=== PATIENT | male | born 1960 | race Caucasian/White ===

== ENCOUNTER 2021-01-08 18:38 | Inpatient (IN) | payer MEDICARE ==
[~2021-01-08] VITALS: Ht 170.2 cm; Wt 77.4 kg
[2021-01-08] MEDS ORDERED: LevETIRAcetam 1,000 MG in DEXTROSE 5%-WATER 100 ML IV ONE (18:45)
[2021-01-08] MEDS ORDERED: LEVE500T53 PO (19:00)
[2021-01-08 19:15] LABS: HEMOGLOBIN 15.5 g/dL (13.5-17.5); MEAN CORPUSCULAR HEMOGLOBIN 29.5 pg (26.0-34.0); MEAN CORPUSCULAR HGB CONC 31.1 G/dL (31.0-37.0); MEAN CORPUSCULAR VOLUME 95 fL (80-100); PLATELET COUNT (AUTO) 204 K/uL (150-450); RED BLOOD CELL COUNT(AUTO) 5.26 MIL/uL (4.50-5.90); RED CELL DISTRIBUTION WIDTH 15.2 % (11.5-14.5)
[2021-01-08] MEDS ORDERED: SODIUM CHLORIDE 0.9% 1,000 ML IV ONE ×2 (19:15→20:15)
[2021-01-08 19:19] LABS: APPEARANCE,URINE CLEAR (CLEAR); BILIRUBIN,URINE NEGATIVE (NEGATIVE); GLUCOSE, URINE (UA) NEGATIVE (NEGATIVE); KETONES,URINE 40 mg/dL (NEGATIVE); LEUKOCYTE ESTERASE ,URINE NEGATIVE (NEGATIVE); NITRATE,URINE NEGATIVE (NEGATIVE); OCCULT BLOOD,URINE LARGE (NEGATIVE); PH,URINE 5.5 (5.0-8.0); PROTEIN,URINE SEE CONFIRM (NEGATIVE); UROBILINOGEN,URINE 0.2 mg/dL (<=1.0)
[2021-01-08 19:24] LABS: AMPHET/METH SCREEN,URINE NEGATIVE (NEGATIVE); BARBITURATE SCREEN, URINE NEGATIVE (NEGATIVE); BENZODIAZEPINES SCREEN,URINE NEGATIVE (NEGATIVE); CANNABINOID SCREEN,URINE POSITIVE (NEGATIVE); COCAINE SCREEN,URINE NEGATIVE (NEGATIVE); METHADONE SCREEN, URINE NEGATIVE (NEGATIVE); OPIATE SCREEN,URINE NEGATIVE (NEGATIVE); PHENCYCLIDINE SCREEN,URINE NEGATIVE (NEGATIVE)
[2021-01-08] MEDS ORDERED: MIDAZOLAM HCL 100 MG in SODIUM CHLORIDE 0.9% 180 ML IV PRN (19:30)
[2021-01-08 19:32] LABS: PROTHROMBIN TIME 10.6 SEC (9.4-11.6)
[2021-01-08 19:33] LABS: TROPONIN I < 0.02 ng/mL (0.00-0.05)
[2021-01-08] MEDS: PROPOFOL 1000 MG/ISO-OSM 100 ML IV PRN (19:36)
[2021-01-08 19:37] LABS: B-TYPE NATRIURETIC PEPTIDE 55 pg/mL (0-100)
[2021-01-08 19:39] LABS: BAND NEUTROPHILS % (MANUAL) 5 % (0-5); LYMPHOCYTES % (MANUAL) 35 % (22-44); MONOCYTES % (MANUAL) 3 % (2-9); SEGMENTED NEUTROPHILS % 57 % (40-70)
[2021-01-08 19:40] LABS: AMMONIA 177 umol/L (11-32)
[2021-01-08 19:42] LABS: BACTERIA,URINE Rare /HPF (None Seen); SQUAMOUS EPITHELIAL CELL,UR Few /LPF (None Seen); SULFOSALICYLIC ACID,URINE 3+ (Negative); WBC,URINE 0-2 /HPF (0-5)
[2021-01-08] MEDS ORDERED: ADENOSINE 3 MG/ML 2 ML VIAL IVP ONE (19:45)
[2021-01-08] MEDS ORDERED: ADENOSINE 3 MG/ML 2 ML VIAL ONE (19:45)
[2021-01-08] MEDS ORDERED: SODIUM CHLORIDE 0.9% 40 ML ONE (19:46)
[2021-01-08 19:49] LABS: ALANINE AMINOTRANSFERASE 39 U/L (12-78); ALBUMIN 4.3 g/dL (3.4-5.0); ALKALINE PHOSPHATASE 145 U/L (46-116); ANION GAP 35 mmol/L (8-16); ASPARTATE AMINOTRANSFERASE 35 U/L (15-37); BILIRUBIN,TOTAL 1.2 mg/dL (0.1-1.0); CALCIUM, TOTAL 8.9 mg/dL (8.8-10.5); CHLORIDE 97 mmol/L (98-107); CREATINE KINASE, TOTAL ONLY 193 U/L (39-308); CREATININE 1.44 mg/dL (0.60-1.30); GLOMERULAR FILTR. RATE CALC 50 mL/min (>60); GLUCOSE,RANDOM 209 mg/dL (70-110); LIPASE 110 U/L (73-393); PHOSPHORUS 6.3 mg/dL (2.5-4.9); POTASSIUM 3.9 mmol/L (3.5-5.1); SODIUM SERUM 139 mmol/L (136-145); TOTAL PROTEIN, SERUM 8.8 g/dL (6.4-8.2); UREA NITROGEN, BLOOD 12 mg/dL (7-18)
[2021-01-08 19:50] LABS: CARBON DIOXIDE 7 mmol/L (22-29)
[2021-01-08 19:58] LABS: SALICYLATE < 2.8 mg/dL (2.8-20.0)
[2021-01-08] MEDS ORDERED: DILTIAZEM HCL 5 MG/ML 5 ML VIAL IVP ONE (20:00)
[2021-01-08 20:03] LABS: ACETAMINOPHEN < 2 mcg/mL (10-30)
[2021-01-08 20:09] LABS: COVID AG,FIA SOURCE NASOPHARYNGEAL
[2021-01-08] MEDS ORDERED: LORazepam 2 MG/ML VIAL ONE (20:44)
[2021-01-08] MEDS ORDERED: LORazepam 2 MG/ML VIAL IVP ONE ×2 (20:45→21:30)
[2021-01-08] MEDS ORDERED: 0.9% SODIUM CHLORIDE 10 ML SYRINGE IVP PRN (21:15)
[2021-01-08] MEDS ORDERED: ONDANSETRON HCL 4 MG/2 ML VIAL IVP PRN ×2 (21:15)
[2021-01-08 21:30] LABS: SITE, BLOOD GAS RT RADIAL; SOURCE, BLOOD GAS ARTERIAL; TEMPERATURE, FAHRENHEIT, BG 98.6 FAHREN (96.0-98.6)
[2021-01-08 21:31] LABS: ABG BASE EXCESS -13.1 mmol/L (-2.0-3.0); ABG CARBOXYHEMOGLOBIN 0.2 % (0.0-1.5); ABG OXYHEMOGLOBIN 98.9 % (94.0-100.0); ABG PCO2 41 mmHg (35-45); ABG PH 7.186 (7.35-7.450); PO2, ARTERIAL BG 439.4 mmHg (84.0-92.0)
[2021-01-08 21:32] LABS: LACTIC ACID 24.4 mmol/L (0.4-2.0)
[2021-01-08 21:32] LABS: ABG METHEMOGLOBIN 0.6 % (0.0-1.5); ABG OXYGEN SATURATION 99.7 % (95.0-98.0); O2 DEVICE,BLOOD GAS VENTILATOR (ROOM AIR)
[2021-01-08 21:33] LABS: PEEP,BG 5 cm H2O; VT, ABG 450 ml
[2021-01-08 22:30] VITALS: BP 123/95
[2021-01-08] MEDS: SODIUM CHLORIDE 0.9% 1,500 ML IV ONE ×2 (22:35→22:36)
[2021-01-08] MEDS: SODIUM CHLORIDE 0.9% 1,000 ML IV SCH (22:35)
[2021-01-09] VITALS: BP 149/95
[2021-01-09] MEDS: PROPOFOL 1000 MG/ISO-OSM 100 ML IV PRN ×6 (01:02→23:45)
[2021-01-09 04:00] VITALS: BP 141/87
[2021-01-09 05:10] LABS: BASOPHILS % (AUTO) 0.3 % (0.0-2.0); EOSINOPHILS % (AUTO) 0.1 % (1.0-6.0); HEMATOCRIT 39.1 % (41-53); HEMOGLOBIN 12.8 g/dL (13.5-17.5); LYMPHOCYTES # (AUTO) 0.7 K/uL (1.0-4.8); LYMPHOCYTES % (AUTO) 4.8 % (22.0-44.0); MEAN CORPUSCULAR HEMOGLOBIN 29.2 pg (26.0-34.0); MEAN CORPUSCULAR HGB CONC 32.9 G/dL (31.0-37.0); MEAN CORPUSCULAR VOLUME 89 fL (80-100); MONOCYTES # (AUTO) 0.3 K/uL (0.1-1.0); MONOCYTES % (AUTO) 2.2 % (2.0-9.0); PLATELET COUNT (AUTO) 118 K/uL (150-450)
[2021-01-09 05:35] LABS: ALANINE AMINOTRANSFERASE 31 U/L (12-78); ALBUMIN 3.3 g/dL (3.4-5.0); ALKALINE PHOSPHATASE 94 U/L (46-116); ANION GAP 16 mmol/L (8-16); ASPARTATE AMINOTRANSFERASE 36 U/L (15-37); BILIRUBIN,TOTAL 1.4 mg/dL (0.1-1.0); CALCIUM, TOTAL 7.5 mg/dL (8.8-10.5); CARBON DIOXIDE 22 mmol/L (22-29); CHLORIDE 104 mmol/L (98-107); CREATININE 0.82 mg/dL (0.60-1.30); GLOMERULAR FILTR. RATE CALC > 60 mL/min (>60); GLUCOSE,RANDOM 106 mg/dL (70-110); POTASSIUM 4.8 mmol/L (3.5-5.1); SODIUM SERUM 142 mmol/L (136-145); TOTAL PROTEIN, SERUM 6.7 g/dL (6.4-8.2); UREA NITROGEN, BLOOD 9 mg/dL (7-18)
[2021-01-09 05:52] LABS: NEUTROPHILS % (AUTO) 92.6 % (40.0-70.0)
[2021-01-09] MEDS: LevETIRAcetam 1,000 MG in DEXTROSE 5%-WATER 100 ML IV SCH ×2 (06:50→18:20)
[2021-01-09] MEDS: SODIUM CHLORIDE 0.9% 1,000 ML IV SCH (07:25)
[2021-01-09 08:00] VITALS: BP 124/80
[2021-01-09] MEDS: HEPARIN SODIUM,PORCINE 5,000 UNITS/ML VIAL SQ SCH ×4 (08:54→23:43)
[2021-01-09] MEDS: CHLORHEXIDINE GLUCONATE 0.12% 15 ML UDCUP ORAL RINSE MM SCH ×2 (08:55→20:30)
[2021-01-09 12:00] VITALS: BP 128/80
[2021-01-09 16:00] VITALS: BP 125/77
[2021-01-09] MEDS ORDERED: SODIUM CHLORIDE 0.9% 250 ML IV ONE (18:11)
[2021-01-09] MEDS: MIDAZOLAM HCL 100 MG in SODIUM CHLORIDE 0.9% 180 ML IV PRN (19:23)
[2021-01-09 19:51] LABS: SITE, BLOOD GAS RT RADIAL
[2021-01-09 19:52] LABS: ABG BASE EXCESS -4.8 mmol/L (-2.0-3.0); ABG HCO3 21.2 mmol/L (22.0-26.0); ABG METHEMOGLOBIN 0.3 % (0.0-1.5); ABG OXYGEN CONTENT 19.3 mL/dL (15.0-23.0); ABG OXYGEN SATURATION 98.6 % (95.0-98.0); ABG OXYHEMOGLOBIN 97.3 % (94.0-100.0); ABG PCO2 36 mmHg (35-45); ABG PH 7.377 (7.35-7.450); PO2, ARTERIAL BG 113.7 mmHg (84.0-92.0); SOURCE, BLOOD GAS ARTERIAL; TEMPERATURE, FAHRENHEIT, BG 98.6 FAHREN (96.0-98.6)
[2021-01-09 19:53] LABS: O2 DEVICE,BLOOD GAS VENTILATOR (ROOM AIR); PEEP,BG 5 cm H2O; VT, ABG 450 ml
[2021-01-09 20:00] VITALS: BP 163/96
[2021-01-10] VITALS: BP 113/70
[2021-01-10 04:00] VITALS: BP 118/70
[2021-01-10] MEDS: PROPOFOL 1000 MG/ISO-OSM 100 ML IV PRN ×5 (04:04→20:51)
[2021-01-10 05:43] LABS: BASOPHILS % (AUTO) 0.3 % (0.0-2.0); EOSINOPHILS % (AUTO) 1.1 % (1.0-6.0); HEMATOCRIT 39.7 % (41-53); HEMOGLOBIN 13.2 g/dL (13.5-17.5); LYMPHOCYTES # (AUTO) 0.9 K/uL (1.0-4.8); LYMPHOCYTES % (AUTO) 12.8 % (22.0-44.0); MEAN CORPUSCULAR HEMOGLOBIN 29.7 pg (26.0-34.0); MEAN CORPUSCULAR HGB CONC 33.3 G/dL (31.0-37.0); MEAN CORPUSCULAR VOLUME 89 fL (80-100); MONOCYTES # (AUTO) 0.4 K/uL (0.1-1.0); MONOCYTES % (AUTO) 6.1 % (2.0-9.0); NEUTROPHILS # (AUTO) 5.7 K/uL (1.8-7.7); NEUTROPHILS % (AUTO) 79.7 % (40.0-70.0); PLATELET COUNT (AUTO) 79 K/uL (150-450); RED BLOOD CELL COUNT(AUTO) 4.45 MIL/uL (4.50-5.90); RED CELL DISTRIBUTION WIDTH 16.2 % (11.5-14.5)
[2021-01-10] MEDS: LevETIRAcetam 1,000 MG in DEXTROSE 5%-WATER 100 ML IV SCH ×2 (06:05→19:38)
[2021-01-10 06:28] LABS: ANION GAP 11 mmol/L (8-16); CALCIUM, TOTAL 8.5 mg/dL (8.8-10.5); CARBON DIOXIDE 23 mmol/L (22-29); CHLORIDE 112 mmol/L (98-107); CREATININE 0.76 mg/dL (0.60-1.30); GLOMERULAR FILTR. RATE CALC > 60 mL/min (>60); GLUCOSE,RANDOM 92 mg/dL (70-110); PHOSPHORUS 2.4 mg/dL (2.5-4.9); POTASSIUM 3.7 mmol/L (3.5-5.1); SODIUM SERUM 146 mmol/L (136-145); UREA NITROGEN, BLOOD 7 mg/dL (7-18)
[2021-01-10 08:00] VITALS: BP 141/86
[2021-01-10] MEDS: ETHYL ALCOHOL 62% ANTISEPTIC NASAL INHALANT 0.6 ML AMPUL NASAL SCH ×2 (08:21→20:50)
[2021-01-10] MEDS: HEPARIN SODIUM,PORCINE 5,000 UNITS/ML VIAL SQ SCH ×2 (08:21→16:46)
[2021-01-10] MEDS: CHLORHEXIDINE GLUCONATE 0.12% 15 ML UDCUP ORAL RINSE MM SCH ×2 (08:21→20:50)
[2021-01-10] MEDS: MethylPREDNISolone SOD SUCC 40 MG/ML VIAL IVP SCH ×2 (11:55→17:32)
[2021-01-10 12:00] VITALS: BP 117/72
[2021-01-10 16:00] VITALS: BP 160/90
[2021-01-10] MEDS: FentaNYL CIT 1000MCG/0.9% NACL 100 ML IV PRN (17:00)
[2021-01-10 20:00] VITALS: BP 141/80
[2021-01-10] MEDS: ACETAMINOPHEN 650 MG/20.3 ML SOLUTION UDCUP GT PRN (20:54)
[2021-01-10] MEDS: MIDAZOLAM HCL 100 MG in SODIUM CHLORIDE 0.9% 180 ML IV PRN (21:04)
[2021-01-11] VITALS: BP 146/76
[2021-01-11] MEDS: MethylPREDNISolone SOD SUCC 40 MG/ML VIAL IVP SCH ×4 (00:45→18:43)
[2021-01-11] MEDS: HEPARIN SODIUM,PORCINE 5,000 UNITS/ML VIAL SQ SCH ×3 (00:46→16:07)
[2021-01-11] MEDS: SODIUM CHLORIDE 0.9% 1,000 ML IV SCH ×2 (01:34→14:29)
[2021-01-11 04:00] VITALS: BP 148/86
[2021-01-11] MEDS: LevETIRAcetam 1,000 MG in DEXTROSE 5%-WATER 100 ML IV SCH ×2 (06:08→20:02)
[2021-01-11 08:00] VITALS: BP 172/83
[2021-01-11] MEDS: CHLORHEXIDINE GLUCONATE 0.12% 15 ML UDCUP ORAL RINSE MM SCH ×2 (08:53→21:34)
[2021-01-11] MEDS: ETHYL ALCOHOL 62% ANTISEPTIC NASAL INHALANT 0.6 ML AMPUL NASAL SCH ×2 (08:54→21:34)
[2021-01-11 12:00] VITALS: BP 155/76
[2021-01-11] MEDS: PROPOFOL 1000 MG/ISO-OSM 100 ML IV PRN ×2 (12:10→21:35)
[2021-01-11 16:00] VITALS: BP 133/73
[2021-01-11] MEDS: FentaNYL CIT 1000MCG/0.9% NACL 100 ML IV PRN (16:08)
[2021-01-11 20:00] VITALS: BP 129/72
[2021-01-11] MEDS ORDERED: SODIUM CHLORIDE 0.9% 250 ML IV ONE (23:52)
[2021-01-12] VITALS: BP 147/97
[2021-01-12] MEDS: MethylPREDNISolone SOD SUCC 40 MG/ML VIAL IVP SCH ×5 (00:30→23:48)
[2021-01-12] MEDS: HEPARIN SODIUM,PORCINE 5,000 UNITS/ML VIAL SQ SCH ×4 (00:30→23:48)
[2021-01-12 04:00] VITALS: BP 152/90
[2021-01-12 05:10] LABS: EOSINOPHILS % (AUTO) 0 % (1.0-6.0); HEMOGLOBIN 13.2 g/dL (13.5-17.5); LYMPHOCYTES # (AUTO) 0.6 K/uL (1.0-4.8); LYMPHOCYTES % (AUTO) 7.7 % (22.0-44.0); MEAN CORPUSCULAR HEMOGLOBIN 29.6 pg (26.0-34.0); MEAN CORPUSCULAR HGB CONC 33.8 G/dL (31.0-37.0); MEAN CORPUSCULAR VOLUME 88 fL (80-100); MONOCYTES # (AUTO) 0.2 K/uL (0.1-1.0); MONOCYTES % (AUTO) 2.7 % (2.0-9.0); NEUTROPHILS # (AUTO) 7.2 K/uL (1.8-7.7); PLATELET COUNT (AUTO) 113 K/uL (150-450); RED BLOOD CELL COUNT(AUTO) 4.44 MIL/uL (4.50-5.90); RED CELL DISTRIBUTION WIDTH 16.1 % (11.5-14.5)
[2021-01-12 05:11] LABS: ANION GAP 8 mmol/L (8-16); CALCIUM, TOTAL 8.5 mg/dL (8.8-10.5); CARBON DIOXIDE 26 mmol/L (22-29); CHLORIDE 109 mmol/L (98-107); CREATININE 0.72 mg/dL (0.60-1.30); GLOMERULAR FILTR. RATE CALC > 60 mL/min (>60); GLUCOSE,RANDOM 165 mg/dL (70-110); SODIUM SERUM 143 mmol/L (136-145); UREA NITROGEN, BLOOD 19 mg/dL (7-18)
[2021-01-12] MEDS: SODIUM CHLORIDE 0.9% 1,000 ML IV SCH ×2 (05:14→19:48)
[2021-01-12 05:15] LABS: NEUTROPHILS % (AUTO) 89.6 % (40.0-70.0)
[2021-01-12] MEDS: LevETIRAcetam 1,000 MG in DEXTROSE 5%-WATER 100 ML IV SCH ×2 (06:31→19:30)
[2021-01-12 08:00] VITALS: BP 135/75
[2021-01-12] MEDS: CHLORHEXIDINE GLUCONATE 0.12% 15 ML UDCUP ORAL RINSE MM SCH ×2 (09:00→20:03)
[2021-01-12] MEDS: ETHYL ALCOHOL 62% ANTISEPTIC NASAL INHALANT 0.6 ML AMPUL NASAL SCH ×2 (09:00→20:03)
[2021-01-12 12:00] VITALS: BP 159/94
[2021-01-12] MEDS: PANTOPRAZOLE SODIUM 40 MG/VIAL IVP SCH (12:37)
[2021-01-12] MEDS: MIDAZOLAM HCL 100 MG in SODIUM CHLORIDE 0.9% 180 ML IV PRN (12:38)
[2021-01-12] MEDS: FentaNYL CIT 1000MCG/0.9% NACL 100 ML IV PRN (15:24)
[2021-01-12 16:00] VITALS: BP 129/68
[2021-01-12] MEDS: PROPOFOL 1000 MG/ISO-OSM 100 ML IV PRN (19:31)
[2021-01-12 20:00] VITALS: BP 121/71
[2021-01-13] VITALS: BP 141/69
[2021-01-13 04:00] VITALS: BP 153/81
[2021-01-13] MEDS: PROPOFOL 1000 MG/ISO-OSM 100 ML IV PRN ×3 (04:46→20:31)
[2021-01-13 05:47] LABS: ANION GAP 6 mmol/L (8-16); CALCIUM, TOTAL 7.7 mg/dL (8.8-10.5); CARBON DIOXIDE 25 mmol/L (22-29); CHLORIDE 112 mmol/L (98-107); CREATININE 0.58 mg/dL (0.60-1.30); GLOMERULAR FILTR. RATE CALC > 60 mL/min (>60); GLUCOSE,RANDOM 159 mg/dL (70-110); POTASSIUM 3.7 mmol/L (3.5-5.1); SODIUM SERUM 143 mmol/L (136-145); UREA NITROGEN, BLOOD 22 mg/dL (7-18)
[2021-01-13] MEDS: MethylPREDNISolone SOD SUCC 40 MG/ML VIAL IVP SCH ×3 (06:08→18:10)
[2021-01-13] MEDS: LevETIRAcetam 1,000 MG in DEXTROSE 5%-WATER 100 ML IV SCH ×2 (07:24→20:29)
[2021-01-13 08:00] VITALS: BP 138/71
[2021-01-13] MEDS: PANTOPRAZOLE SODIUM 40 MG/VIAL IVP SCH (08:57)
[2021-01-13] MEDS: HEPARIN SODIUM,PORCINE 5,000 UNITS/ML VIAL SQ SCH ×2 (08:57→16:11)
[2021-01-13] MEDS: ETHYL ALCOHOL 62% ANTISEPTIC NASAL INHALANT 0.6 ML AMPUL NASAL SCH ×2 (08:57→20:29)
[2021-01-13] MEDS: CHLORHEXIDINE GLUCONATE 0.12% 15 ML UDCUP ORAL RINSE MM SCH ×2 (08:57→21:00)
[2021-01-13] MEDS: SODIUM CHLORIDE 0.9% 1,000 ML IV SCH ×2 (09:33→23:16)
[2021-01-13] MEDS: MIDAZOLAM HCL 100 MG in SODIUM CHLORIDE 0.9% 180 ML IV PRN (10:39)
[2021-01-13 12:00] VITALS: BP 132/72
[2021-01-13] MEDS: FentaNYL CIT 1000MCG/0.9% NACL 100 ML IV PRN (13:34)
[2021-01-13] MEDS: DEXMEDETOMIDINE HCL 400 MCG in SODIUM CHLORIDE 0.9% 96 ML IV PRN (15:28)
[2021-01-13 16:00] VITALS: BP 148/81
[2021-01-13 20:00] VITALS: BP 178/88
[2021-01-14] VITALS: BP 165/85
[2021-01-14] MEDS: MethylPREDNISolone SOD SUCC 40 MG/ML VIAL IVP SCH ×4 (00:27→18:37)
[2021-01-14] MEDS: HEPARIN SODIUM,PORCINE 5,000 UNITS/ML VIAL SQ SCH ×3 (00:27→15:40)
[2021-01-14] MEDS ORDERED: AmLODIPine BESYLATE 5 MG TABLET PO ONE (02:45)
[2021-01-14] MEDS: PROPOFOL 1000 MG/ISO-OSM 100 ML IV PRN ×4 (03:23→19:47)
[2021-01-14] MEDS: FentaNYL CIT 1000MCG/0.9% NACL 100 ML IV PRN ×2 (03:42→12:37)
[2021-01-14 04:00] VITALS: BP 166/71
[2021-01-14 05:24] LABS: ANION GAP 8 mmol/L (8-16); CALCIUM, TOTAL 8.1 mg/dL (8.8-10.5); CARBON DIOXIDE 29 mmol/L (22-29); CHLORIDE 107 mmol/L (98-107); GLOMERULAR FILTR. RATE CALC > 60 mL/min (>60); GLUCOSE,RANDOM 186 mg/dL (70-110); SODIUM SERUM 144 mmol/L (136-145); UREA NITROGEN, BLOOD 19 mg/dL (7-18)
[2021-01-14] MEDS: LevETIRAcetam 1,000 MG in DEXTROSE 5%-WATER 100 ML IV SCH ×2 (06:09→19:46)
[2021-01-14 08:00] VITALS: BP 151/75
[2021-01-14] MEDS: PANTOPRAZOLE SODIUM 40 MG/VIAL IVP SCH (10:23)
[2021-01-14] MEDS: ETHYL ALCOHOL 62% ANTISEPTIC NASAL INHALANT 0.6 ML AMPUL NASAL SCH ×2 (10:23→21:05)
[2021-01-14] MEDS: CHLORHEXIDINE GLUCONATE 0.12% 15 ML UDCUP ORAL RINSE MM SCH ×2 (10:23→21:05)
[2021-01-14] MEDS ORDERED: POTASSIUM CHLORIDE 20 MEQ ER TABLET PO PRN (11:30)
[2021-01-14 12:00] VITALS: BP 158/75
[2021-01-14] MEDS: POTASSIUM CHL 10 MEQ/WATER 50 ML IV PRN ×6 (12:32→23:11)
[2021-01-14] MEDS ORDERED: SODIUM CHLORIDE 0.9% 250 ML IV ONE (13:22)
[2021-01-14] MEDS: HydrALAZINE HCL 20 MG/ML VIAL IVP SCH ×3 (14:07→21:06)
[2021-01-14 16:00] VITALS: BP 152/75
[2021-01-14 17:59] LABS: ABG A-A DIFF O2 55.9 mmHg (10-20.0); ABG BASE EXCESS 5.4 mmol/L (-2.0-3.0); ABG CARBOXYHEMOGLOBIN 0.5 % (0.0-1.5); ABG HCO3 29.4 mmol/L (22.0-26.0); ABG METHEMOGLOBIN 0.3 % (0.0-1.5); ABG OXYGEN CONTENT 22.7 mL/dL (15.0-23.0); ABG OXYGEN SATURATION 99.1 % (95.0-98.0); ABG OXYHEMOGLOBIN 98.3 % (94.0-100.0); ABG PCO2 37 mmHg (35-45); ABG PH 7.503 (7.35-7.450); ABG TOTAL HEMOGLOBIN 16.3 G/dL (12.0-18.0); PO2, ARTERIAL BG 150.1 mmHg (84.0-92.0); SOURCE, BLOOD GAS ARTERIAL; TEMPERATURE, FAHRENHEIT, BG 99.1 FAHREN (96.0-98.6)
[2021-01-14 18:00] LABS: O2 DEVICE,BLOOD GAS VENTILATOR (ROOM AIR); SITE, BLOOD GAS LFT RADIAL; VENT MODE, BG CPAP (ROOM AIR)
[2021-01-14 18:01] LABS: CPAP, BG 5 cm H2O; PRESSURE SUPPORT, BG 8 cm H2O; SPONTANEOUS VT, BG 494 ml
[2021-01-14 20:00] VITALS: BP 143/93
[2021-01-15] VITALS: BP 88/49
[2021-01-15] MEDS: HEPARIN SODIUM,PORCINE 5,000 UNITS/ML VIAL SQ SCH ×3 (00:01→17:30)
[2021-01-15] MEDS: MethylPREDNISolone SOD SUCC 40 MG/ML VIAL IVP SCH ×4 (00:02→17:29)
[2021-01-15] MEDS: PROPOFOL 1000 MG/ISO-OSM 100 ML IV PRN ×2 (00:03→07:40)
[2021-01-15] MEDS: FentaNYL CIT 1000MCG/0.9% NACL 100 ML IV PRN (02:33)
[2021-01-15 04:00] VITALS: BP 100/58
[2021-01-15] MEDS: POTASSIUM CHL 10 MEQ/WATER 50 ML IV PRN ×3 (04:26→09:20)
[2021-01-15 05:00] LABS: BASOPHILS % (AUTO) 0.1 % (0.0-2.0); EOSINOPHILS % (AUTO) 0 % (1.0-6.0); HEMATOCRIT 40.9 % (41-53); HEMOGLOBIN 13.6 g/dL (13.5-17.5); LYMPHOCYTES # (AUTO) 0.5 K/uL (1.0-4.8); LYMPHOCYTES % (AUTO) 7.4 % (22.0-44.0); MEAN CORPUSCULAR HEMOGLOBIN 29.5 pg (26.0-34.0); MEAN CORPUSCULAR HGB CONC 33.3 G/dL (31.0-37.0); MEAN CORPUSCULAR VOLUME 89 fL (80-100); MONOCYTES # (AUTO) 0.8 K/uL (0.1-1.0); NEUTROPHILS # (AUTO) 4.9 K/uL (1.8-7.7); NEUTROPHILS % (AUTO) 79.5 % (40.0-70.0); PLATELET COUNT (AUTO) 182 K/uL (150-450); RED BLOOD CELL COUNT(AUTO) 4.62 MIL/uL (4.50-5.90); RED CELL DISTRIBUTION WIDTH 15.7 % (11.5-14.5)
[2021-01-15 05:09] LABS: ANION GAP 4 mmol/L (8-16); CALCIUM, TOTAL 7.7 mg/dL (8.8-10.5); CARBON DIOXIDE 31 mmol/L (22-29); CHLORIDE 106 mmol/L (98-107); CREATININE 0.63 mg/dL (0.60-1.30); GLOMERULAR FILTR. RATE CALC > 60 mL/min (>60); GLUCOSE,RANDOM 171 mg/dL (70-110); POTASSIUM 3.4 mmol/L (3.5-5.1); SODIUM SERUM 141 mmol/L (136-145); UREA NITROGEN, BLOOD 26 mg/dL (7-18)
[2021-01-15] MEDS: LevETIRAcetam 1,000 MG in DEXTROSE 5%-WATER 100 ML IV SCH ×2 (07:41→19:17)
[2021-01-15 08:00] VITALS: BP 95/53
[2021-01-15] MEDS: PANTOPRAZOLE SODIUM 40 MG/VIAL IVP SCH (09:18)
[2021-01-15] MEDS: HydrALAZINE HCL 20 MG/ML VIAL IVP SCH ×4 (09:19→21:04)
[2021-01-15] MEDS: CHLORHEXIDINE GLUCONATE 0.12% 15 ML UDCUP ORAL RINSE MM SCH ×2 (09:19→21:04)
[2021-01-15] MEDS: ETHYL ALCOHOL 62% ANTISEPTIC NASAL INHALANT 0.6 ML AMPUL NASAL SCH ×2 (09:19→21:04)
[2021-01-15] MEDS: DEXMEDETOMIDINE HCL 400 MCG in SODIUM CHLORIDE 0.9% 96 ML IV PRN (09:20)
[2021-01-15] MEDS: MIDAZOLAM HCL 100 MG in SODIUM CHLORIDE 0.9% 180 ML IV PRN (09:22)
[2021-01-15 12:00] VITALS: BP 119/64
[2021-01-15 16:00] VITALS: BP 126/78
[2021-01-15 20:00] VITALS: BP 130/79
[2021-01-16] VITALS (8 sets, daily range): BP systolic 119–173; BP diastolic 62–90
[2021-01-16] MEDS: HEPARIN SODIUM,PORCINE 5,000 UNITS/ML VIAL SQ SCH ×3 (00:03→17:39)
[2021-01-16] MEDS: MethylPREDNISolone SOD SUCC 40 MG/ML VIAL IVP SCH ×2 (00:03→06:49)
[2021-01-16] MEDS ORDERED: SODIUM CHLORIDE 0.9% 250 ML IV ONE ×2 (02:14→21:38)
[2021-01-16] MEDS: ACETAMINOPHEN 650 MG/20.3 ML SOLUTION UDCUP GT PRN (02:30)
[2021-01-16] MEDS: LevETIRAcetam 1,000 MG in DEXTROSE 5%-WATER 100 ML IV SCH ×2 (07:14→21:35)
[2021-01-16] MEDS ORDERED: BISACODYL 5 MG EC TABLET PO PRN (07:15)
[2021-01-16] MEDS: PANTOPRAZOLE SODIUM 40 MG/VIAL IVP SCH (09:48)
[2021-01-16] MEDS: ETHYL ALCOHOL 62% ANTISEPTIC NASAL INHALANT 0.6 ML AMPUL NASAL SCH ×2 (09:48→21:36)
[2021-01-16] MEDS: HydrALAZINE HCL 20 MG/ML VIAL IVP SCH ×4 (09:49→21:00)
[2021-01-16] MEDS: CHLORHEXIDINE GLUCONATE 0.12% 15 ML UDCUP ORAL RINSE MM SCH ×2 (09:50→21:35)
[2021-01-16] MEDS: PredniSONE 20 MG TABLET PO SCH (14:09)
[2021-01-17] MEDS: HEPARIN SODIUM,PORCINE 5,000 UNITS/ML VIAL SQ SCH ×2 (00:27→08:19)
[2021-01-17 00:48] VITALS: BP 127/72
[2021-01-17 05:06] VITALS: BP 153/76
[2021-01-17] MEDS: LevETIRAcetam 1,000 MG in DEXTROSE 5%-WATER 100 ML IV SCH (06:19)
[2021-01-17 06:58] LABS: ANION GAP 7 mmol/L (8-16); CARBON DIOXIDE 31 mmol/L (22-29); CHLORIDE 102 mmol/L (98-107); CREATININE 0.57 mg/dL (0.60-1.30); GLOMERULAR FILTR. RATE CALC > 60 mL/min (>60); GLUCOSE,RANDOM 98 mg/dL (70-110); SODIUM SERUM 140 mmol/L (136-145); UREA NITROGEN, BLOOD 20 mg/dL (7-18)
[2021-01-17 08:00] VITALS: BP 122/58
[2021-01-17] MEDS: ETHYL ALCOHOL 62% ANTISEPTIC NASAL INHALANT 0.6 ML AMPUL NASAL SCH (08:19)
[2021-01-17] MEDS: PANTOPRAZOLE SODIUM 40 MG/VIAL IVP SCH (08:19)
[2021-01-17] MEDS: CHLORHEXIDINE GLUCONATE 0.12% 15 ML UDCUP ORAL RINSE MM SCH (08:19)
[2021-01-17] MEDS: HydrALAZINE HCL 20 MG/ML VIAL IVP SCH ×2 (08:20→12:10)
[2021-01-17] MEDS: PredniSONE 20 MG TABLET PO SCH (08:20)
[2021-01-17 11:20] VITALS: BP 137/71
[2021-01-17 11:37] LABS: GLUCOMETER DEV NAME(LOC) 5N.1C; GLUCOSE,POINT OF CARE 193 MG/DL (70-110)
[2021-01-17] MEDS ORDERED: PRED20 PO (14:22)
[2021-01-17] MEDS ORDERED: BISA-151 PO (14:25)
[2021-01-17] MEDS ORDERED: ACET-2247 PO (14:26)
== END 2021-01-17 14:50 | DRG 100 ==
LOC: EMS 18:50 → ICU 21:47 → 5S 01-16 11:55
PROVIDERS: ADMIT Internal Medicine; ATTEND Internal Medicine
PROC: 0BH17EZ Insertion of Endotracheal Airway into Trachea, Via Natural or Artificial Opening (ICD-10-PCS; principal; 2021-01-08)
PROC: 5A1955Z Respiratory Ventilation, Greater than 96 Consecutive Hours (ICD-10-PCS; 2021-01-08)
PROC: 5A09357 Assistance with Respiratory Ventilation, Less than 24 Consecutive Hours, Continuous Positive Airway Pressure (ICD-10-PCS; 2021-01-09)
DX: G40.901 Epilepsy, unspecified, not intractable, with status epilepticus (principal); J96.00 Acute respiratory failure, unspecified whether with hypoxia or hypercapnia; D62 Acute posthemorrhagic anemia; E87.2 Acidosis; R65.10 Systemic inflammatory response syndrome (SIRS) of non-infectious origin without acute organ dysfunction; E87.0 Hyperosmolality and hypernatremia; N17.9 Acute kidney failure, unspecified; D69.6 Thrombocytopenia, unspecified; I10 Essential (primary) hypertension; R31.29 Other microscopic hematuria; Z86.73 Personal history of transient ischemic attack (TIA), and cerebral infarction without residual deficits; E87.6 Hypokalemia; Z20.822 Contact with and (suspected) exposure to COVID-19; E66.9 Obesity, unspecified; Z71.3 Dietary counseling and surveillance; Z68.26 Body mass index [BMI] 26.0-26.9, adult
CPT/HCPCS: 31500; 36600; 70450; 71045; 72125; 80048; 80053; 81001; 81002; 82140; 82550; 82805; 82962; 83605; 83690; 83735; 83880; 84100; 84132; 84484; 85025; 85610; 85730; 87040; 87070; 87081; 87205; 92610; 93005; 94002; 94003; 97110; 97116; 97163; 97166; 97530; 99285; A9575; C9113; G0378; G0480; G0481; G0482; J0153; J0360; J0712; J1644; J2060; J2250; J2704; J2920; J3480; J3490; J7030; J7050; J7060; 36415-L1; 36415-TC